=== PATIENT | female | born 1990 | race Hispanic/Latino ===

== ENCOUNTER 2017-10-23 17:53 | Emergency (ER) | payer BC ==
[~2017-10-23 17:53] MED LIST: ISOVUE-370 76%-LOCM 1 ML ONE
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
== END 2017-10-23 19:44 | disposition home or self-care (01) ==
LOC: ERS 17:53
DX: S30.1XXA Contusion of abdominal wall, initial encounter (principal); S20.311A Abrasion of right front wall of thorax, initial encounter; F32.9 Major depressive disorder, single episode, unspecified; V43.62XA Car passenger injured in collision with other type car in traffic accident, initial encounter; W22.19XA Striking against or struck by other automobile airbag, initial encounter
CPT/HCPCS: 71045; 74177

== ENCOUNTER 2018-12-31 19:09 | Emergency (ER) | payer BC ==
[2018-12-31 19:54] LABS: #Basophils 0.1 thou/uL (0.0-0.2); #Eosinphils 0.2 thou/uL (0.0-0.7); #Lymphocytes 2.6 thou/uL (1.20-3.40); #Monocytes 0.6 thou/uL (0.11-0.59); #Neutrophils 6.1 thou/uL (1.40-6.50); %Basophils 0.7 % (0.0-1.0); %Lymphocytes 27.1 % (21.0-51.0); %Monocytes 6.6 % (0.0-10.0); %Neutrophils 63.7 % (42.0-75.0); Hemoglobin 13.6 g/dL (12.0-16.0); Mean Corpuscular HGB CONC 33.1 g/dL (32.0-36.0); Mean Corpuscular Hemoglobin 30.2 pg (27.0-31.0); Mean Corpuscular Volume 91.1 fL (78.0-98.0); Mean Platelet Volume 5.7 fL (7.4-10.4); Platelet Count 323 thou/uL (130-400); RBC Distribution Width 11.5 % (11.5-14.5); Red Blood Cell (RBC) Count 4.52 mill/uL (4.20-5.40); White Blood Cell (WBC) Count 9.5 thou/uL (4.8-10.8)
[2018-12-31 20:13] LABS: ALT (SGPT) 13 U/L (8-55); AST (SGOT) 16 U/L (5-34); Alkaline Phosphatase 92 U/L (40-150); Anion Gap 10 mmol/L (10-20); BUN (Urea Nitrogen) 10 mg/dL (7.0-18.7); Bilirubin, Total 0.3 mg/dL (0.2-1.2); Calc. Creatinine Clearance 0 mL/min (70-130); Calcium 9.5 mg/dL (7.8-10.44); Carbon Dioxide 29 mmol/L (22-29); Chloride 105 mmol/L (98-107); Estimated GFR-MDRD Greater than 90; Globulin 3.3 g/dL (2.4-3.5); Glucose 90 mg/dL (70-105); Potassium 4.2 mmol/L (3.5-5.1); Protein, Total 7.3 g/dL (6.0-8.3); Sodium 140 mmol/L (136-145)
== END 2018-12-31 21:35 | disposition home or self-care (01) ==
LOC: ERS 19:09
DX: R19.7 Diarrhea, unspecified (principal); F41.9 Anxiety disorder, unspecified; F32.9 Major depressive disorder, single episode, unspecified
CPT/HCPCS: 36415; 80053; 85025; 87045; 87046; 87328; 87329; 87449; 87899; 99284

== ENCOUNTER 2020-02-10 08:34 | Outpatient (CLI) | payer BC ==
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
== END 2020-02-10 08:35 | disposition home or self-care (01) ==
LOC: BICMRI 08:34
PROVIDERS: ATTEND Family Medicine
DX: G56.93 Unspecified mononeuropathy of bilateral upper limbs (principal)
CPT/HCPCS: 72141

== ENCOUNTER 2020-03-05 13:53 | Emergency (ER) | payer BC, OTHER ==
[2020-03-06 13:56] LABS: SARS-CoV-2 MS2 Positive; SARS-CoV-2 N Gene Negative; SARS-CoV-2 S Gene Negative; SARS-CoV-2 orf1ab Negative
== END 2020-03-05 14:16 | disposition home or self-care (01) ==
LOC: ERS 13:53
DX: R05 Cough (principal); Z20.828 Contact with and (suspected) exposure to other viral communicable diseases; F41.9 Anxiety disorder, unspecified; F32.9 Major depressive disorder, single episode, unspecified
CPT/HCPCS: 87635; 99283; U0003

== ENCOUNTER 2020-06-29 22:54 | Emergency (ER) | payer BC ==
[2020-06-29] MEDS ORDERED: Ketorolac Tromethamine 30 MG/ML VIAL ONE (23:15)
[2020-06-29 23:40] LABS: #Eosinphils 0.1 thou/uL (0.0-0.7); #Lymphocytes 1.8 thou/uL (1.20-3.40); #Monocytes 0.4 thou/uL (0.11-0.59); #Neutrophils 9.6 thou/uL (1.40-6.50); %Basophils 0.4 % (0.0-1.0); %Eosinophils 0.5 % (0.0-10.0); %Lymphocytes 15.4 % (21.0-51.0); %Monocytes 3.6 % (0.0-10.0); %Neutrophils 80.1 % (42.0-75.0); Hemoglobin 14.4 g/dL (12.0-16.0); Mean Corpuscular HGB CONC 34.4 g/dL (32.0-36.0); Mean Corpuscular Hemoglobin 30.4 pg (27.0-31.0); Mean Corpuscular Volume 88.3 fL (78.0-98.0); Mean Platelet Volume 6.1 fL (7.4-10.4); Platelet Count 311 thou/uL (130-400); RBC Distribution Width 12.1 % (11.5-14.5); Red Blood Cell (RBC) Count 4.76 mill/uL (4.20-5.40)
[2020-06-29 23:45] LABS: BHCG - Serum Negative (NEGATIVE); Pregs Control Background? CLEAR/WHITE (CLR/WHITE); Pregs Control Bar Appear? YES (CONTROL BAR)
[2020-06-30 00:01] LABS: ALT (SGPT) 18 U/L (8-55); AST (SGOT) 18 U/L (5-34); Albumin 3.5 g/dL (3.5-5.0); Alkaline Phosphatase 70 U/L (40-110); Anion Gap 11 mmol/L (10-20); BUN (Urea Nitrogen) 10 mg/dL (7.0-18.7); Bilirubin, Total 0.3 mg/dL (0.2-1.2); CK (CPK) 80 U/L (29-168); Calc. Creatinine Clearance 0 mL/min (70-130); Calcium 8.2 mg/dL (7.8-10.44); Carbon Dioxide 25 mmol/L (22-29); Chloride 105 mmol/L (98-107); Estimated GFR-MDRD Greater than 90; Globulin 2.9 g/dL (2.4-3.5); Glucose 172 mg/dL (70-105); Potassium 3.9 mmol/L (3.5-5.1); Protein, Total 6.4 g/dL (6.0-8.3); Sodium 137 mmol/L (136-145)
== END 2020-06-30 00:30 | disposition home or self-care (01) ==
LOC: ERS 22:54
DX: R55 Syncope and collapse (principal); R11.0 Nausea; F32.9 Major depressive disorder, single episode, unspecified; F41.9 Anxiety disorder, unspecified
CPT/HCPCS: 80053; 82550; 83735; 84484; 84703; 85025; 93005; 96374; J1885

== ENCOUNTER 2021-07-14 18:01 | Emergency (ER) | payer BC ==
[2021-07-15 15:40] LABS: SARS-CoV-2 PCR by NAA Not Detected (NotDetected)
== END 2021-07-14 19:15 | disposition home or self-care (01) ==
LOC: ERS 18:01
DX: B34.9 Viral infection, unspecified (principal); Z20.822 Contact with and (suspected) exposure to COVID-19
CPT/HCPCS: 99283; U0003; U0005

== ENCOUNTER 2021-07-27 13:39 | Emergency (ER) | payer BC, SELFPAY ==
[2021-07-27 17:44] LABS: SARS-CoV-2 PCR by NAA Not Detected (NotDetected)
== END 2021-07-27 14:50 | disposition home or self-care (01) ==
LOC: ERS 13:39
DX: J20.9 Acute bronchitis, unspecified (principal); H60.91 Unspecified otitis externa, right ear
CPT/HCPCS: 99284; U0003; U0005

== ENCOUNTER 2022-04-01 22:14 | Emergency (ER) | payer BC ==
[2022-04-02] MEDS ORDERED: Ketorolac Tromethamine 30 MG/ML VIAL ONE (00:59)
[2022-04-02] MEDS ORDERED: HYDROcodone/Acetaminophen 10/325 mg Tablet ONE (00:59)
== END 2022-04-02 01:25 | disposition home or self-care (01) ==
LOC: ERS 22:14
DX: S29.012A Strain of muscle and tendon of back wall of thorax, initial encounter (principal); X50.1XXA Overexertion from prolonged static or awkward postures, initial encounter
CPT/HCPCS: 96372; 99283; J1885

== ENCOUNTER 2022-04-07 23:09 | Emergency (ER) | payer BC | END 2022-04-08 01:19 | disposition left against medical advice (07) | LOC: ERS 23:09 | DX: Z53.21 Procedure and treatment not carried out due to patient leaving prior to being seen by health care provider (principal) ==

== ENCOUNTER 2022-04-08 18:37 | Emergency (ER) | payer BC | END 2022-04-08 19:00 | disposition home or self-care (01) | LOC: ERS 18:37 | DX: S51.851A Open bite of right forearm, initial encounter (principal); S81.851A Open bite, right lower leg, initial encounter; W55.01XA Bitten by cat, initial encounter | CPT/HCPCS: 99283 ==

== ENCOUNTER 2023-01-18 18:58 | Emergency (ER) | payer BC ==
[2023-01-18 19:49] LABS: Bacteria/HPF 2+ HPF (None Seen); Bilirubin Negative (Negative); Blood, Urine 1+ (Negative); Clarity Turbid (Clear); Glucose, Urine (Dipstick) Normal (Negative); Ketone, Urine Negative (Negative); Leukocyte 500 Leu/uL (Negative); Nitrite Negative (Negative); Protein, Urine (Dipstick) 30 mg/dL (Neg-Trace); Renal Epithelial 0-3 HPF (None Seen); Specific Gravity, Urine 1.023 (1.002-1.036); Urobilinogen Normal mg/dL (Less than 2); WBC/HPF Greater than 50 HPF (0-3)
== END 2023-01-18 20:07 | disposition home or self-care (01) ==
LOC: ERS 18:58
DX: N39.0 Urinary tract infection, site not specified (principal); K21.9 Gastro-esophageal reflux disease without esophagitis
CPT/HCPCS: 81003; 81015; 99283

== ENCOUNTER 2023-04-02 17:30 | Outpatient (CLI) | payer BC | END 2023-04-02 17:31 | disposition home or self-care (01) | LOC: SLEEPLAB 17:30 | PROVIDERS: ATTEND Family Medicine | DX: G47.33 Obstructive sleep apnea (adult) (pediatric) (principal); R53.83 Other fatigue; F32.A Depression, unspecified; E66.9 Obesity, unspecified; R06.83 Snoring | CPT/HCPCS: 95811 ==